=== PATIENT | male | born 1950 | race Two or more races ===

== ENCOUNTER 2019-01-19 12:16 | Emergency (ER) | payer MEDICARE, MEDICAID ==
[2019-01-19] MEDS ORDERED: KETOROLAC TROMETHAMINE 60 MG/2 ML SDV IM ONE (14:04)
--- NOTE | 2019-01-19 14:04 | ER Document Report ---
ED General - General Chief Complaint: Fall Stated Complaint: BACK/KNEE PAIN Time Seen by Provider: 01/19/19 13:57 Primary Care Provider: CIRO PARIKH MD [Primary Care Provider] - Follow up in 3-5 days NICOLASA CHU DO [ACTIVE STAFF] - Follow up in 3-5 days Notes: Patient is a 68-year-old male with history of arthritis that presents to the emergency department for chief complaint of left knee pain and right back pain. Patient reports that he fell about 10 days ago, injuring his left knee, he states that because of that he is been favoring his right side, he has a history of sciatica on the right, and that it has been worsening as a result of this. He states he has had some swelling of the left knee, currently rates his pain as a 4 out of 10 describes as an aching sensation in both the knee and the right lower back. He gets some radiation from the pain in the back to the back of the right leg. Denies any numbness, tingling or weakness in the lower extremities, denies any bowel or bladder incontinence, denies any saddle anesthesia or paresthesias. Past Medical History: Osteoarthritis Past Surgical History: Back surgery Social History: Admits to frequent alcohol use, denies tobacco or illicit drug use. Family History: Reviewed and noncontributory for presenting illness Allergies: Reviewed, see documented allergy list. REVIEW OF SYSTEMS: Other than noted above, the 12 point review of systems was reviewed with the patient and were negative, all pertinent findings are included in the HPI. PHYSICAL EXAMINATION: Vital signs reviewed, nursing noted reviewed. GENERAL: Elderly, well-appearing male, no acute distress HEAD: Atraumatic, normocephalic. EYES: Eyes appear normal, sclera anicteric, conjunctiva are normal. ENT: Moist mucous membranes. NECK: Normal range of motion, supple without lymphadenopathy LUNGS: Breath sounds clear to auscultation bilaterally and equal. No wheezes rales or rhonchi. HEART: Regular rate and rhythm without murmurs Back: No tenderness with palpation to the midline or thoracic spine, there is mild tenderness to palpation of the paraspinal muscles of the lumbar spine on the right, with some tenderness over the piriformis on the right as well. EXTREMITIES: There is tenderness to palpation to the joint line of the left knee, with a mild knee effusion appreciated, positive patellar grind testing, negative anterior and posterior drawer testing, there is good range of motion in flexion beyond 90 degrees of the knee. The rest the patient's extremity exam is grossly unremarkable. And nontender, good range of motion, no pitting or edema. NEUROLOGICAL: No focal neurological deficits. Moves all extremities spontaneously Motor and sensory grossly intact on exam. PSYCH: Normal mood, normal affect. SKIN: Warm, Dry, normal turgor, no rashes or lesions noted on exposed skin TRAVEL OUTSIDE OF THE [place] IN LAST 30 DAYS: No - Related Data Allergies/Adverse Reactions: No Known Allergies Allergy (Verified 01/19/19 13:54) Past Medical History - Social History Smoking Status: Former Smoker Frequency of alcohol use: Social Drug Abuse: None Family History: Reviewed & Not Pertinent Patient has suicidal ideation: No Patient has homicidal ideation: No Renal/ Medical History: Denies: Hx Peritoneal Dialysis GI Medical History: Reports: Hx Gastroesophageal Reflux Disease Past Surgical History: Reports: Hx Orthopedic Surgery - back surgery by dr dos santos in 2004 - Immunizations Immunizations up to date: No Hx Diphtheria, Pertussis, Tetanus Vaccination: Yes Physical Exam - Vital signs Vitals: Temp Pulse Resp BP Pulse Ox 97.5 F 78 18 171/94 H 99 01/19/19 12:25 01/19/19 12:25 01/19/19 12:25 01/19/19 12:25 01/19/19 12:25 Course - Re-evaluation Re-evalutation: Patient seen and examined, vital signs reviewed, patient appears well on exam, he had a mild knee effusion on the left, and some tenderness to the right back, x-rays of the knee obtained and were negative for acute injury, demonstrated significant osteoarthritis, will treat the patient with steroids to help with the sciatica as well as with his arthritic pain, given an anti-inflammatory as well, as well as a muscle relaxer advised to follow-up with orthopedic surgery regarding his knee, he was given an Jose Armando wrap as well. Patient agreeable to plan of care and discharged home. - Vital Signs Vital signs: Temp Pulse Resp BP Pulse Ox 97.7 F 72 17 175/91 H 100 01/19/19 15:45 01/19/19 15:45 01/19/19 15:45 01/19/19 15:45 01/19/19 15:45 Procedures - Immobilization Left Knee Pre-Proc Neuro Vasc Exam: Normal Immobilizer type: Jose Armando wrap Performed by: RN Post-Proc Neuro Vasc Exam: Normal Alignment checked and good: Yes Discharge - Discharge Clinical Impression: Knee pain, left, Sciatica Condition: Stable Disposition: HOME, SELF-CARE Instructions: Knee Effusion ([facility]), Sciatica ([facility]) Additional Instructions: Please take all medications as prescribed, if you take the muscle relaxer, please do not drive while taking this medication, as it can cause drowsiness, and please follow-up with orthopedic surgery to have you need further evaluated. Prescriptions: Ibuprofen [Motrin 600 mg Tablet] 600 mg PO Q8HP PRN #20 tablet PRN Reason: knee pain Methocarbamol [Robaxin 500 mg Tablet] 500 mg PO TID PRN #15 tablet PRN Reason: back pain RX: Prednisone [Deltasone 10 mg Tablet] 40 mg PO DAILY #20 tablet Referrals: CIRO PARIKH MD [Primary Care Provider] - Follow up in 3-5 days NICOLASA CHU DO [ACTIVE STAFF] - Follow up in 3-5 days
--- NOTE | 2019-01-19 14:58 | RADIOLOGY REPORT (SQ) ---
EXAM DESCRIPTION: KNEE LEFT 3 VIEWS COMPLETED DATE/TIME: 01/19/2019 2:50 pm REASON FOR STUDY: left knee pain COMPARISON: None. NUMBER OF VIEWS: Three views. TECHNIQUE: AP, lateral, and sunrise patella radiographic images acquired of the left knee. LIMITATIONS: None. FINDINGS: MINERALIZATION: Normal. BONES: No acute fracture or dislocation. No worrisome bone lesions. JOINT: There is joint space narrowing in all compartments. SOFT TISSUES: No soft tissue swelling. No radio-opaque foreign body. OTHER: No other significant finding. IMPRESSION: Degenerative changes in all compartments. No acute findings. TECHNICAL DOCUMENTATION: JOB ID: [id number] [employer]- All Rights Reserved Reading location - IP/workstation name: [email or web address]
[2019-01-19 15:49] VITALS: BP 175/91
== END 2019-01-19 15:46 | disposition home or self-care (01) ==
LOC: ER 12:16
DX: M25.562 Pain in left knee (principal); M54.32 Sciatica, left side; M54.9 Dorsalgia, unspecified; Z87.891 Personal history of nicotine dependence
CPT/HCPCS: 99283; 96372; 73562; J1885

== ENCOUNTER 2019-01-29 11:10 | Emergency (ER) | payer MEDICARE, MEDICAID ==
[2019-01-29] MEDS ORDERED: KETOROLAC TROMETHAMINE INJ/PF 30 MG/1 ML SDV IM ONE (11:35)
[2019-01-29] MEDS ORDERED: HYDROCODONE/ACETAMINOPHEN 5-325 MG TABLET PO ONE (11:36)
[2019-01-29] MEDS ORDERED: LIDOCAINE 5% (700 MG) TRANSDERMAL ADH..PATCH TP ONE (11:36)
--- NOTE | 2019-01-29 11:41 | ER Document Report ---
HPI - HPI Patient complains to provider of: Left knee pain Time Seen by Provider: 01/29/19 11:27 Onset: Other - 3 days Onset/Duration: Worse Quality of pain: Achy Pain Level: 5 Context: Patient presents complaining of a flareup of left knee joint pain. Patient denies any recent injury. Patient states he was seen here recently and diagnosed with arthritis and advised to follow-up with orthopedics. Patient attempted to call their office today although it was closed. Patient states that he was not able to afford the muscle relaxer that was prescribed at his last ER visit but he did finish taking the anti-inflammatory medicine and the steroids. Patient states that he has had problems with his back and it alters the way he walks which aggravates his arthritic knee pain. Associated Symptoms: Other - Left knee joint pain. denies: Fever Exacerbated by: Movement Relieved by: Remaining still Similar symptoms previously: Yes Recently seen / treated by doctor: Yes - ROS ROS below otherwise negative: Yes Systems Reviewed and Negative: Yes All other systems reviewed and negative - CONSTITUTIONAL Constitutional: DENIES: Fever, Chills - NEURO Neurology: DENIES: Weakness - CARDIOVASCULAR Cardiovascular: DENIES: Chest pain - RESPIRATORY Respiratory: DENIES: Trouble Breathing, Coughing - REPRODUCTIVE Reproductive: DENIES: : - MUSCULOSKELETAL Musculoskeletal: REPORTS: Extremity pain - right knee - DERM Skin Color: Normal Skin Problems: None Past Medical History - General Information source: Patient - Social History Smoking Status: Never Smoker Frequency of alcohol use: None Drug Abuse: None Lives with: Family Family History: Reviewed & Not Pertinent Patient has suicidal ideation: No Patient has homicidal ideation: No - Past Medical History Cardiac Medical History: Denies: Hx Hypertension Renal/ Medical History: Denies: Hx Peritoneal Dialysis GI Medical History: Reports: Hx Gastroesophageal Reflux Disease Musculoskeletal Medical History: Reports Hx Arthritis Past Surgical History: Reports: Hx Orthopedic Surgery - back surgery by dr dos santos in 2004 - Immunizations Immunizations up to date: No Hx Diphtheria, Pertussis, Tetanus Vaccination: Yes Vertical Provider Document - CONSTITUTIONAL Agree With Documented VS: Yes Exam Limitations: No Limitations General Appearance: WD/WN, No Apparent Distress - INFECTION CONTROL TRAVEL OUTSIDE OF THE [place] IN LAST 30 DAYS: No - HEENT HEENT: Atraumatic, Normocephalic - NECK Neck: Normal Inspection, Supple - RESPIRATORY Respiratory: Breath Sounds Normal, No Respiratory Distress - CARDIOVASCULAR Cardiovascular: Regular Rate, Regular Rhythm Pulses: Normal: Posterior tibial - MUSCULOSKELETAL/EXTREMETIES Musculoskeletal/Extremeties: MAEW, FROM, Tender - Left knee joint tenderness to medial compartment and medial joint line, no effusion. No laxity with varus or valgus maneuvers. Normal skin color and temperature overlying joint., No Edema. negative: Eccymosis - NEURO Level of Consciousness: Awake, Alert, Appropriate Motor/Sensory: No Motor Deficit, No Sensory Deficit - DERM Integumentary: Warm, Dry, No Rash Course - Re-evaluation Re-evalutation: 01/29/19 11:37 Review of patient's previous x-ray demonstrates degenerative changes to the left knee joint. Patient states that he did not initially call the orthopedic doctor office right away and states that they are closed today. Patient states that he does plan to call them on Friday for follow-up. Patient denies any new injury to the knee joint. Patient with no recent injury, no fever, no erythema and no calor the joint. No concern for septic arthritis or gout at this time. Patient does state that weather affects his knee joint pain and this may be the case today as well. - Diagnostic Test Radiology reviewed: Reports reviewed - Reviewed report from previous ER visit Discharge - Discharge Clinical Impression: Arthritis Knee pain, left Qualifiers: Chronicity: chronic Qualified Code(s): M25.562 - Pain in left knee Condition: Stable Disposition: HOME, SELF-CARE Instructions: Jose Armando Wrap ([facility]), Arthritis ([facility]), Oral Narcotic Medication ([facility]) Additional Instructions: Return immediately for any new or worsening symptoms, fever, swelling, redness or any concerning symptoms Followup with your primary care provider, call tomorrow to make a followup appointment Follow-up with orthopedics on Friday as planned Prescriptions: Hydrocodone/Acetaminophen [[place] 5-325 mg Tablet] 1 tab PO Q6 PRN #12 tablet PRN Reason: Naproxen [Naprosyn 250 Nmg Tablet] 1 tab PO BID #14 tablet Referrals: CIRO PARIKH MD [Primary Care Provider] - Follow up as needed [facility] [Provider Group] - 02/01/19
[2019-01-29 11:43] VITALS: BP 165/72
== END 2019-01-29 12:04 | disposition home or self-care (01) ==
LOC: ER 11:10
DX: M17.12 Unilateral primary osteoarthritis, left knee (principal); M25.562 Pain in left knee; T48.2 Poisoning by, adverse effect of and underdosing of other and unspecified drugs acting on muscles; Z91.120 Patient's intentional underdosing of medication regimen due to financial hardship; Z91.14 Patient's other noncompliance with medication regimen; M25.561 Pain in right knee
CPT/HCPCS: 99283; 96372; J1885; A9270

== ENCOUNTER 2019-12-02 13:34 | Emergency (ER) | payer MEDICARE, OTHER, MEDICAID ==
[2019-12-02] MEDS ORDERED: KETOROLAC TROMETHAMINE 60 MG/2 ML SDV IM ONE (15:06)
[2019-12-02] MEDS ORDERED: PREDNISONE 20 MG TABLET PO ONE (15:06)
--- NOTE | 2019-12-02 15:10 | ER Document Report ---
HPI - HPI Time Seen by Provider: 12/02/19 15:03 Pain Level: 4 Context: CHIEF COMPLAINT: Sciatic pain HPI: 69-year-old male presenting to the emergency department complaining of right sciatic pain. Patient states that is been ongoing for approximately a month. Patient with history of prior sciatic issues states this feels similar. No incontinence of urine or bowel. Patient complains of right lower back pain that seems to radiate through the right hip and down the right leg. Denies trauma. Patient follows with Dr. Lopez orthopedics. States he has an appointment next for further evaluation. No fever ROS: See HPI - all other systems were reviewed and are otherwise negative Constitutional: no fever GI: no vomiting, no diarrhea, no abdominal pain : no dysuria Integumentary: no rash Allergy: no hives Musculoskeletal: Positive sciatic pain Neurological: no numbness/tingling, no weakness MEDICATIONS: I agree with the patient medications as charted by the RN. ALLERGIES: I agree with the allergies as charted by the RN. PAST MEDICAL HISTORY/PAST SURGICAL HISTORY: Reviewed and agree as charted by RN. SOCIAL HISTORY: Reviewed and agree as charted by RN. FAMILY HISTORY: No significant familial comorbid conditions directly related to patient complaint EXAM: Reviewed vital signs as charted by RN. CONSTITUTIONAL: Alert and oriented and responds appropriately to questions. Well-appearing; well-nourished, mild distress secondary to pain HEAD: Normocephalic; atraumatic EYES: conjunctivae clear, sclerae non-icteric ENT: normal nose; no rhinorrhea; moist mucous membranes; pharynx without lesions noted NECK: Supple without meningismus; non-tender CARD: symmetric distal pulses RESP: Normal chest excursion without splinting or tachypnea ABD/GI: Normal bowel sounds; non-distended; soft, non-tender, no rebound, no guarding; no palpable organomegaly or masses. BACK: The back appears normal and is non-tender to palpation directly over the lumbar spine. There is mild right lateral lumbar muscular tenderness into the right upper gluteal region, there is no CVA tenderness EXT: Normal ROM in all joints; non-tender to palpation; no cyanosis, no effusions, no edema SKIN: Normal color for age and race; warm; dry; good turgor; no acute lesions noted NEURO: Moves all extremities equally; Motor and sensory function intact. Strength equal 5/5 bilateral lower extremities. Sensation intact and equal bilateral lower extremities. Straight leg raise is negative. No saddle anesthesia on exam. DTRs 2+ intact and equal bilateral lower extremities. PSYCH: The patient's mood and manner are appropriate. Grooming and personal hygiene are appropriate. MDM: 69-year-old male with history of arthritis and sciatica presenting for sciatic pain for 1 month. Pain radiates from the right lower back into the right leg. He states it is exactly the same as prior sciatic issues. No incontinence of urine or bowel neurologically intact. Patient is requesting a shot for pain today. He has an orthopedic appointment in [address] patient on a short course of steroids. - REPRODUCTIVE Reproductive: DENIES: : - MUSCULOSKELETAL Musculoskeletal: REPORTS: Extremity pain Past Medical History - Social History Smoking Status: Former Smoker Chew tobacco use (# tins/day): No Frequency of alcohol use: Social Drug Abuse: None Family History: Reviewed & Not Pertinent Patient has suicidal ideation: No Patient has homicidal ideation: No - Past Medical History Cardiac Medical History: Denies: Hx Hypertension Renal/ Medical History: Denies: Hx Peritoneal Dialysis GI Medical History: Reports: Hx Gastroesophageal Reflux Disease Musculoskeletal Medical History: Reports Hx Arthritis Past Surgical History: Reports: Hx Orthopedic Surgery - back surgery by dr dos santos in 2004 - Immunizations Immunizations up to date: No Hx Diphtheria, Pertussis, Tetanus Vaccination: Yes Vertical Provider Document - INFECTION CONTROL TRAVEL OUTSIDE OF THE [place] IN LAST 30 DAYS: No Course - Vital Signs Vital signs: Temp Pulse Resp BP Pulse Ox 97.4 F 71 16 184/91 H 98 12/02/19 13:43 12/02/19 13:43 12/02/19 13:43 12/02/19 13:43 12/02/19 13:43 Discharge - Discharge Clinical Impression: Sciatica, right side Condition: Stable Disposition: HOME, SELF-CARE Instructions: Sciatica ([facility]) Additional Instructions: Start the prednisone that you are prescribed tomorrow as you were given today's dose in the emergency department. Follow-up with both orthopedics and your primary care provider for reevaluation of your symptoms call for appointment or further management Prescriptions: Prednisone [Deltasone 20 mg Tablet] 2 tab PO DAILY 5 Days #10 tablet Referrals: CIRO PARIKH MD [Primary Care Provider] - Follow up as needed JONES LOPEZ MD [ACTIVE STAFF] - Follow up as needed
[2019-12-02 15:35] VITALS: BP 185/75
== END 2019-12-02 15:36 | disposition home or self-care (01) ==
LOC: ER 13:34
DX: M54.41 Lumbago with sciatica, right side (principal); Z87.891 Personal history of nicotine dependence
CPT/HCPCS: 99283; 96372; J1885; A9270; J7512

== ENCOUNTER 2020-07-12 11:05 | Emergency (ER) | payer MEDICARE, MEDICAID ==
[2020-07-12] MEDS ORDERED: METOCLOPRAMIDE HCL ORAL SOLN 10 MG/10 ML UDCUP PO ONE (11:35)
[2020-07-12] MEDS ORDERED: LIDOCAINE 2% VISCOUS SOLN 15 ML UDCUP PO ONE (11:35)
[2020-07-12] MEDS ORDERED: MAG HYDROX/AL HYDROX/SIMETH SUSP 30 ML UDCUP PO ONE ×2 (11:35→12:01)
--- NOTE | 2020-07-12 11:37 | ER Document Report ---
ED Medical Screen (RME) - General Chief Complaint: Abdominal Pain >50 Stated Complaint: STOMACH PAIN Time Seen by Provider: 07/12/20 11:32 Primary Care Provider: CIRO PARIKH MD [Primary Care Provider] - Follow up as needed Mode of Arrival: Ambulatory Information source: Patient Notes: 70-year-old male presented to ED for upper abdominal pain. He states is been g oing on for couple weeks but is much worse and is constant now. He states he does not smoke or use any illicit drugs but he does drink daily. He states he drinks either 3 or 4 beers pain that day. He is alert oriented respirations regular nonlabored speaking in full sentences. He states he does have a history of back pain with surgery and he has had ulcers in the past. I have greeted and performed a rapid initial assessment of this patient. A comprehensive ED assessment and evaluation of the patient, analysis of test results and completion of medical decision making process will be conducted by an additional ED providers. TRAVEL OUTSIDE OF THE [place] IN LAST 30 DAYS: No - Related Data Allergies/Adverse Reactions: No Known Allergies Allergy (Verified 07/12/20 11:32) Past Medical History - Past Medical History Cardiac Medical History: Denies: Hx Hypertension Renal/ Medical History: Denies: Hx Peritoneal Dialysis GI Medical History: Reports: Hx Gastroesophageal Reflux Disease Musculoskeltal Medical History: Reports Hx Arthritis Past Surgical History: Reports: Hx Orthopedic Surgery - back surgery by dr dos santos in 2004 - Immunizations Immunizations up to date: No Hx Diphtheria, Pertussis, Tetanus Vaccination: Yes Physical Exam - Vital signs Vitals: Temp Pulse Resp BP Pulse Ox 98.4 F 91 18 149/73 H 97 07/12/20 11:13 07/12/20 11:13 07/12/20 11:13 07/12/20 11:13 07/12/20 11:13 Course - Vital Signs Vital signs: Temp Pulse Resp BP Pulse Ox 98.4 F 91 18 149/73 H 97 07/12/20 11:13 07/12/20 11:13 07/12/20 11:13 07/12/20 11:13 07/12/20 11:13 Doctor's Discharge - Discharge Referrals: CIRO PARIKH MD [Primary Care Provider] - Follow up as needed
--- NOTE | 2020-07-12 12:12 | ER Document Report ---
Entered by SAMRA SOLER SCRIBE 07/12/20 1201 Acting as scribe for:MARKOS MORROW MD ED GI/ - General Chief Complaint: Abdominal Pain >50 Stated Complaint: STOMACH PAIN Time Seen by Provider: 07/12/20 11:32 Primary Care Provider: CIRO GORDILLO MD [Primary Care Provider] - Follow up as needed Mode of Arrival: Ambulatory Information source: Patient Notes: This 70 year old male patient presents to the ED today with complaints of upper abdominal pain for the past x2 weeks. Patient states that the pain was intermittent in nature initially, but has been more constant in the last couple of days. He reports that he notices that the pain is worse around lunchtime. Denies any other complaints. At this time the patient denies any discomfort. TRAVEL OUTSIDE OF THE [place] IN LAST 30 DAYS: No - Related Data Allergies/Adverse Reactions: No Known Allergies Allergy (Verified 07/12/20 11:32) Home Medications: meloxicam, zanaflex Past Medical History - General Information source: Patient - Social History Smoking Status: Never Smoker Cigarette use (# per day): No Chew tobacco use (# tins/day): No Smoking Education Provided: No Frequency of alcohol use: daily 3/4 beers Drug Abuse: None Family History: Reviewed & Not Pertinent Patient has homicidal ideation: No GI Medical History: Reports: Hx Gastroesophageal Reflux Disease Musculoskeletal Medical History: Reports Hx Arthritis Past Surgical History: Reports: Hx Orthopedic Surgery - back surgery by dr sorensen in 2004 - Immunizations Immunizations up to date: No Hx Diphtheria, Pertussis, Tetanus Vaccination: Yes Review of Systems - Review of Systems Constitutional: No symptoms reported EENT: No symptoms reported Cardiovascular: No symptoms reported Respiratory: No symptoms reported Gastrointestinal: See HPI, Abdominal pain Genitourinary: No symptoms reported Male Genitourinary: No symptoms reported Musculoskeletal: No symptoms reported Skin: No symptoms reported Hematologic/Lymphatic: No symptoms reported Neurological/Psychological: No symptoms reported -: Yes All other systems reviewed and negative Physical Exam - Vital signs Vitals: Temp Pulse Resp BP Pulse Ox 98.4 F 91 18 149/73 H 97 07/12/20 11:13 07/12/20 11:13 07/12/20 11:13 07/12/20 11:13 07/12/20 11:13 - General General appearance: Appears well, Alert In distress: None - HEENT Head: Normocephalic, Atraumatic Eyes: Normal Pupils: PERRL Pharynx: Normal - Respiratory Respiratory status: No respiratory distress Chest status: Nontender Breath sounds: Normal Chest palpation: Normal - Cardiovascular Rhythm: Regular Heart sounds: Normal auscultation Murmur: No Friction rub: No Gallop: None auscultated - Abdominal Inspection: Normal Distension: No distension Bowel sounds: Normal Tenderness: Nontender - Abdomen soft. No: Guarding, Rebound Organomegaly: No organomegaly. No: Mass - Back Back: Normal, Nontender - Extremities General upper extremity: Normal inspection General lower extremity: Normal inspection. No: Edema - Neurological Neuro grossly intact: Yes - Psychological Associated symptoms: Normal affect, Normal mood - Skin Skin Temperature: Warm Skin Moisture: Dry Skin Color: Normal Course - Re-evaluation Re-evalutation: 07/12/20 13:49 Patient feels fine at this time. We did discuss dietary modifications and reducing alcohol consumption to see if that might be causing his upper abdominal discomfort. The patient did provide a past medical history of ulcers, he takes Mobic daily and drinks 4-5 beers daily. I suspect this is most likely gastroesophageal discomfort he has been experiencing based on his history and the findings today. He will be referred to his primary care provider Dr. Gordillo for further evaluation. - Vital Signs Vital signs: Temp Pulse Resp BP Pulse Ox 98.4 F 91 18 149/73 H 97 07/12/20 11:13 07/12/20 11:13 07/12/20 11:13 07/12/20 11:13 07/12/20 11:13 - Laboratory Result Diagrams: 07/12/20 12:50 07/12/20 12:50 Laboratory results interpreted by me: 07/12/20 07/12/20 11:45 12:50 RDW 15.9 H Urine Protein 30 H Urine Glucose (UA) 50 H Urine Urobilinogen 2.0 H Discharge - Discharge Clinical Impression: Epigastric abdominal pain of unknown etiology Condition: Stable Disposition: HOME, SELF-CARE Additional Instructions: Reflux Disease (GERD) Gastro-Esophageal Reflux Disease (GERD) is caused by stomach acid refluxing back up into the esophagus. The valve at the end of the esophagus may be weak. This is common in persons with a hiatal hernia. GERD symptoms can include indigestion, chest pain, heartburn, or food "sticking." Certain foods, alcohol, and aspirin can make GERD worse. Treatment depends on the severity. Usually, antacids or acid-suppressing medicines are used. When the esophagus is acutely inflamed, the physician will often prescribe membrane-protective drugs such as Carafate. Some patients benefit from medication such as Reglan that tightens the valve at the top of the stomach. Avoid those foods that bring on your symptoms. For many people, these foods are coffee, chocolate, onions, garlic, and carbonated drinks. Don't use alcohol, aspirin, caffeine, or tobacco. Don't eat late at night -- within 4 hours of bedtime. Don't over-eat. If necessary, elevate the head of your bed about 4 inches so that stomach acid will not roll up into your esophagus. Call the doctor if you develop severe chest pain, inability to swallow fluids, fever, or worsening symptoms. The symptoms you have been experiencing for the past few weeks are most likely gastroesophageal reflux, or heartburn. For now, try avoiding spicy and greasy foods, citric acid drinks such as orange juice, and alcohol. Take Prilosec OTC once daily for the next 2 weeks. Take antacids between meals and at bedtime. Follow-up with your primary care provider this week if trying the recommended treatments does not change your discomfort. RETURN TO THE EMERGENCY ROOM IF ANY NEW OR WORSENING SYMPTOMS. Referrals: CIRO GORDILLO MD [Primary Care Provider] - Follow up in 3-5 days I personally performed the services described in the documentation, reviewed and edited the documentation which was dictated to the scribe in my presence, and it accurately records my words and actions.
[2020-07-12 12:16] LABS: APPEARANCE,URINE CLEAR; BILIRUBIN,URINE NEGATIVE (NEGATIVE); COLOR,URINE YELLOW; GLUCOSE, URINE 50 mg/dL (NEGATIVE); KETONES,URINE NEGATIVE (NEGATIVE); LEUKOCYTE ESTERASE,URINE NEGATIVE (NEGATIVE); NITRITE,URINE NEGATIVE (NEGATIVE); PROTEIN,URINE 30 mg/dL (NEGATIVE); URINE SPECIFIC GRAVITY 1.019
[2020-07-12 13:05] LABS: ABSOLUTE BASOPHILS # (AUTO) 0.1 10^3/uL (0.0-0.2); ABSOLUTE EOSINOPHILS # (AUTO) 0.1 10^3/uL (0.0-0.6); ABSOLUTE LYMPHOCYTES (AUTO) 1.7 10^3/uL (0.5-4.7); ABSOLUTE MONOCYTES (AUTO) 0.7 10^3/uL (0.1-1.4); BASOPHILS % (AUTO) 0.8 % (0-2); EOSINOPHILS % (AUTO) 1.5 % (0-6); HEMATOCRIT 42.3 % (37.9-51.0); HEMOGLOBIN 14.2 g/dL (13.5-17.0); LYMPHOCYTES % (AUTO) 25.7 % (13-45); MEAN CORPUSCULAR HEMOGLOBIN 29.5 pg (27.0-33.4); MEAN CORPUSCULAR HGB CONC 33.6 g/dL (32.0-36.0); MEAN CORPUSCULAR VOLUME 88 fl (80-97); MONOCYTES % (AUTO) 10.3 % (3-13); PLATELET COUNT 309 10^3/uL (150-450); RED BLOOD COUNT 4.82 10^6/uL (4.35-5.55); RED CELL DISTRIBUTION WIDTH 15.9 % (11.5-14.0); SEGMENTED NEUTROPHILS % (AUTO) 61.7 % (42-78); TOTAL CELLS COUNTED % (AUTO) 100 %; WHITE BLOOD COUNT 6.5 10^3/uL (4.0-10.5)
[2020-07-12 13:20] LABS: ALBUMIN 4.3 g/dL (3.5-5.0); ALKALINE PHOSPHATASE 71 U/L (38-126); ANION GAP 9 (5-19); ASPARTATE AMINO TRANSFERASE 28 U/L (17-59); BILIRUBIN,DIRECT 0.3 mg/dL (0.0-0.4); BILIRUBIN,TOTAL 0.7 mg/dL (0.2-1.3); BLOOD UREA NITROGEN 13 mg/dL (7-20); CALCIUM 9.8 mg/dL (8.4-10.2); CARBON DIOXIDE 28 mmol/L (22-30); CHLORIDE 101 mmol/L (98-107); GLUCOSE 105 mg/dL (75-110); POTASSIUM 4.2 mmol/L (3.6-5.0); TOTAL PROTEIN 7.3 g/dL (6.3-8.2)
[2020-07-12 14:14] VITALS: BP 136/85
== END 2020-07-12 14:12 | disposition home or self-care (01) ==
LOC: ER 11:05
DX: R10.13 Epigastric pain (principal); M19.90 Unspecified osteoarthritis, unspecified site; Z79.1 Long term (current) use of non-steroidal anti-inflammatories (NSAID); Z79.899 Other long term (current) drug therapy
CPT/HCPCS: 99282; 36415; 83690; 85025; 80053; 81001; J3490; A9270

== ENCOUNTER 2020-10-27 14:01 | Emergency (ER) | payer MEDICARE, MEDICAID ==
[2020-10-27] MEDS ORDERED: ACETAMINOPHEN 325 MG TABLET PO ONE (15:07)
--- NOTE | 2020-10-27 15:08 | ER Document Report ---
HPI - HPI Time Seen by Provider: 10/27/20 15:00 Context: Patient is a 70-year-old male who presents to the emergency department after mechanical fall. Patient states that he was walking down some slippery, wet steps and ended up falling. This happened last night. Denies any loss of consciousness. Reports right-sided neck pain and right hand pain. - ROS Systems Reviewed and Negative: Yes All other systems reviewed and negative - CONSTITUTIONAL Constitutional: DENIES: Fever, Chills - CARDIOVASCULAR Cardiovascular: DENIES: Chest pain - RESPIRATORY Respiratory: DENIES: Trouble Breathing, Coughing - GASTROINTESTINAL Gastrointestinal: DENIES: Abdominal Pain, Nausea, Patient vomiting - REPRODUCTIVE Reproductive: DENIES: : - MUSCULOSKELETAL Musculoskeletal: REPORTS: Extremity pain - See HPI., Neck Pain - See HPI. - DERM Skin Color: Normal Skin Problems: None Past Medical History - General Information source: Patient - Social History Smoking Status: Unknown if Ever Smoked Family History: Reviewed & Not Pertinent - Past Medical History Cardiac Medical History: Denies: Hx Hypertension Renal/ Medical History: Denies: Hx Peritoneal Dialysis GI Medical History: Reports: Hx Gastroesophageal Reflux Disease Musculoskeletal Medical History: Reports Hx Arthritis Past Surgical History: Reports: Hx Orthopedic Surgery - back surgery by dr sorensen in 2004 - Immunizations Immunizations up to date: No Hx Diphtheria, Pertussis, Tetanus Vaccination: Yes Vertical Provider Document - CONSTITUTIONAL Agree With Documented VS: Yes Exam Limitations: No Limitations General Appearance: No Apparent Distress - INFECTION CONTROL TRAVEL OUTSIDE OF THE [place] IN LAST 30 DAYS: No - HEENT HEENT: Atraumatic, Normocephalic, PERRLA. negative: Conjuctival Injection - NECK Neck: Normal Inspection, Supple, Other - Tenderness upon palpation to cervical spine - RESPIRATORY Respiratory: No Respiratory Distress - CARDIOVASCULAR Cardiovascular: Regular Rate, Regular Rhythm Pulses: Normal: Radial - MUSCULOSKELETAL/EXTREMETIES Musculoskeletal/Extremeties: FROM, Tender - Right fifth digit, Edema - Right fifth digit - NEURO Level of Consciousness: Awake, Alert, Appropriate Motor/Sensory: No Motor Deficit, No Sensory Deficit - DERM Integumentary: Warm, Dry, No Rash Course - Re-evaluation Re-evalutation: 10/27/20 17:07 Head, neck, and hand x-ray are all unremarkable. No fractures noted will place the patient in a splint to help with comfort. Patient is to follow-up with his primary care provider. - Vital Signs Vital signs: Temp Pulse Resp BP Pulse Ox 98.2 F 69 23 H 175/85 H 94 10/27/20 14:05 10/27/20 14:05 10/27/20 14:05 10/27/20 14:05 10/27/20 14:05 - Laboratory Results Critical Laboratory Results Reviewed: No Critical Results - Radiology Results Critical Radiology Results Reviewed: No Critical Results Procedures - Immobilization Right Medial Hand Pre-Proc Neuro Vasc Exam: Normal Immobilizer type: Ulnar Performed by: PCT Post-Proc Neuro Vasc Exam: Normal, Unchanged from pre-exam Alignment checked and good: Yes Discharge - Discharge Clinical Impression: Fall Qualifiers: Encounter type: initial encounter Qualified Code(s): W19.XXXA - Unspecified fall, initial encounter Condition: Stable Disposition: HOME, SELF-CARE Additional Instructions: You were seen today in the emergency department after a fall. You do not have any fractures based off of your CT scan and x-ray. Wear the splint to help with comfort. If you decide to shower, you can take the splint off. Follow-up with your regular doctor. Take Tylenol 1000 mg every 6 hours to help with pain. Referrals: CIRO PARIKH MD [Primary Care Provider] - Follow up in 1 week
--- NOTE | 2020-10-27 15:46 | RADIOLOGY REPORT (SQ) ---
EXAM DESCRIPTION: HAND RIGHT 3 VIEWS IMAGES COMPLETED DATE/TIME: 10/27/2020 3:19 pm REASON FOR STUDY: fall; 4th and 5th digit pain COMPARISON: None. EXAM PARAMETERS: NUMBER OF VIEWS: Three views. TECHNIQUE: AP, lateral and oblique radiographic images acquired of the right hand. LIMITATIONS: None. FINDINGS: MINERALIZATION: Normal. BONES: No acute fracture or dislocation. No worrisome bone lesions. JOINTS: No effusions. SOFT TISSUES: No soft tissue swelling. No foreign body. OTHER: No other significant finding. IMPRESSION: NEGATIVE STUDY OF THE RIGHT HAND. NO RADIOGRAPHIC EVIDENCE OF ACUTE INJURY. TECHNICAL DOCUMENTATION: JOB ID: [id number] 2010 [employer]- All Rights Reserved Reading location - IP/workstation name: [email or web address]
--- NOTE | 2020-10-27 15:56 | RADIOLOGY REPORT (SQ) ---
EXAM DESCRIPTION: CT HEAD WITHOUT IMAGES COMPLETED DATE/TIME: 10/27/2020 3:40 pm REASON FOR STUDY: fall COMPARISON: 11/16/2015. TECHNIQUE: Axial images acquired through the brain without intravenous contrast. Images reviewed wi th bone, brain and subdural windows. Additional sagittal and coronal reconstructions were generated. Images stored on PACS. All CT scanners at this facility use dose modulation, iterative reconstruction, and/or weight based d osing when appropriate to reduce radiation dose to as low as reasonably achievable (ALARA). [facility]: Dose Right [facility]: CareDose [facility]: Dose Right [facility]: Teradose 4D [facility]: Smart [employer] RADIATION DOSE: CT Rad equipment meets quality standard of care and radiation dose reduction techniq ues were employed. CTDIvol: 53.2 mGy. DLP: 1070 mGy-cm. mGy. LIMITATIONS: None. FINDINGS: VENTRICLES: Prominent. CEREBRUM: No masses. No hemorrhage. No midline shift. Areas of low density in the white matter mos t likely due to chronic micro-vascular ischemic change. No evidence for acute infarction. CEREBELLUM: No masses. No hemorrhage. No alteration of density. No evidence for acute infarction. EXTRAAXIAL SPACES: Mild age-related involutional change. No fluid collections. No masses. ORBITS AND GLOBE: No intra- or extraconal masses. Normal contour of globe without masses. CALVARIUM: No fracture. PARANASAL SINUSES: No fluid or mucosal thickening. SOFT TISSUES: No mass or hematoma. OTHER: No other significant finding. IMPRESSION: MILD CHRONIC CHANGES OF ATROPHY AND MICROVASCULAR ISCHEMIA. NO ACUTE PROCESS. EVIDENCE OF ACUTE STROKE: NO. TECHNICAL DOCUMENTATION: JOB ID: [id number] Quality ID # [id number]: Final reports with documentation of one or more dose reduction techniques (e.g., Au tomated exposure control, adjustment of the mA and/or kV according to patient size, use of iterative reconstruction technique) 2010 [employer]- All Rights Reserved Reading location - IP/workstation name: [email or web address]
--- NOTE | 2020-10-27 15:58 | RADIOLOGY REPORT (SQ) ---
EXAM DESCRIPTION: CT CERVICAL SPINE WITHOUT IMAGES COMPLETED DATE/TIME: 10/27/2020 3:40 pm REASON FOR STUDY: fall COMPARISON: None. TECHNIQUE: Axial images acquired through the cervical spine without intravenous contrast. Images re viewed with lung, soft tissue and bone windows. Reconstructed coronal and sagittal MPR images review ed. Images stored on PACS. All CT scanners at this facility use dose modulation, iterative reconstruction, and/or weight based d osing when appropriate to reduce radiation dose to as low as reasonably achievable (ALARA). [facility]: Dose Right [facility]: CareDose [facility]: Dose Right [facility]: Teradose 4D [facility]: Smart [employer] RADIATION DOSE: CT Rad equipment meets quality standard of care and radiation dose reduction techniq ues were employed. CTDIvol: 23.7 mGy. DLP: 467 mGy-cm. mGy. LIMITATIONS: None. FINDINGS: ALIGNMENT: Anatomic. MINERALIZATION: Normal. VERTEBRAL BODIES: No fractures or dislocation. DISCS: Multilevel disc space narrowing with osteophytes. FACETS, LATERAL MASSES, POSTERIOR ELEMENTS: Facet arthropathy. No fractures. No dislocation. No ac kale findings. HARDWARE: None in the spine. VISUALIZED RIBS: No fractures. LUNG APICES AND SOFT TISSUES: No significant or acute findings. OTHER: No other significant finding. IMPRESSION: CHRONIC DEGENERATIVE CHANGES. NO ACUTE FINDINGS. TECHNICAL DOCUMENTATION: JOB ID: [id number] Quality ID # [id number]: Final reports with documentation of one or more dose reduction techniques (e.g., Au tomated exposure control, adjustment of the mA and/or kV according to patient size, use of iterative reconstruction technique) 2010 [employer]- All Rights Reserved Reading location - IP/workstation name: [email or web address]
[2020-10-27 17:58] VITALS: BP 159/72
== END 2020-10-27 17:58 | disposition home or self-care (01) ==
LOC: ER 14:01
DX: M79.641 Pain in right hand (principal); M54.2 Cervicalgia; W10.9XXA Fall (on) (from) unspecified stairs and steps, initial encounter
CPT/HCPCS: 99284; 73130; 70450; 72125; 29125; A9270